=== PATIENT | male | born 1955 | race Caucasian/White ===

== ENCOUNTER 2021-05-13 06:30 | Day surgery (SDC) | payer MEDICARE, BC ==
[~2021-05-13] VITALS: Ht 170.2 cm; Wt 79.3 kg
--- NOTE | 2021-05-13 08:23 | NUR ---
05/13/21 0823 Irma Farooq 0816-PATIENT ARRIVED TO PACU ON 2L NC RR EVEN. PATIENT AWAKE DROWSY DENIES PAIN OR NAUSEA. LAYING LEFT LATERAL ABDOMEN SOFT ENCOURAGED TO PASS GAS. IVF INFUSING.
--- NOTE | 2021-05-13 10:46 | OR ---
[facility] [address], [place] [address] Signed DATE OF OPERATION: 05/13/2021 SURGEON: Steven Gates MD PREOPERATIVE DIAGNOSES: 1. Chronic proximal esophageal dysphagia. 2. Hiatal hernia. 3. History of esophagitis. 4. Barahona's esophagus. 5. History of gastritis. 6. Unremarkable colonoscopy in 2009. 7. Screening. POSTOPERATIVE DIAGNOSES: 1. Mild diffuse gastritis. 2. Small hiatal hernia. 3. Barahona's esophagus. 4. Distal esophagitis. 5. Poor bowel prep. 6. Minimal sigmoid diverticulosis. 7. Minimal to moderate internal hemorrhoids. PROCEDURES: 1. EGD with CLOtest and biopsies of the pyloric bulb, antrum, GE junction/distal esophagus. 2. Colonoscopy biopsy. ESTIMATED BLOOD LOSS: None. INDICATIONS: Clinton is a 65-year-old gentleman, asked to see me for repeat upper and lower endoscopy. He has had chronic proximal esophageal dysphagia for many years. Dr. Chris did both upper and lower endoscopy in 2009. He had a hiatal hernia with significant esophagitis and probable Barahona's esophagus. His colonoscopy was unremarkable. I repeated the upper endoscopy in 2011 and he does have Barahona's esophagus without dysplasia. At that time, no significant hiatal hernia noted. He had diffuse gastritis. His CLOtest was negative for H pylori. He tried two different proton pump inhibitors. He even went and saw his Ear, Nose, and Throat surgeon for evaluation. That seemed to go well. He now uses Zegerid [id number] which contains omeprazole and bicarbonate. If he stops Electronically Signed By: STEVEN GATES MD 05/13/21 1046 PATIENT NAME: CLINTON BARRETT OPERATIVE REPORT DATE OF : 55 REPORT #: [id number] PHYSICIAN: STEVEN GATES MD PCP: IVA ARREDONDO MD REPORT IS CONFIDENTIAL AND NOT TO BE RELEASED WITHOUT AUTHORIZATION [facility] [address], [place] [address] Signed the medicine, he said he is miserable. He has changed primary care providers. He is asked to see me for repeat upper and lower endoscopy. He has no lower GI complaints. There is no family history of colon cancer or polyps. He has had a recent cardiac evaluation, which was unremarkable. In the office, I gave Clinton pamphlets on both upper and lower endoscopy. He recalls the nature of the two tests. There is risk including, but not limited to gas bloating, crampy abdominal pain, bleeding, perforation requiring surgery, and missed diagnosis. We also discussed the need for IV conscious sedation. He has done well with Versed and fentanyl in the past. He had expressed understanding and wished to proceed. PROCEDURE NOTE: Clinton was taken into the endoscopy suite and placed in a supine semi-recumbent position. The posterior oropharynx was anesthetized with Hurricaine spray. A bite block was utilized for the case. He was given a total of 8 mg of Versed and 100 mcg of fentanyl to cover both the upper and lower endoscopy. The adult gastroscope had been introduced and advanced out into the duodenum without difficulty. Overall, the duodenum and pyloric channel were unremarkable. He does have mild diffuse erythematous changes throughout the stomach. We took biopsies from the pyloric channel as well as the antrum for pathologic review. An additional biopsy came out of the antrum for CLOtest. Upon retroflexion of the scope, he does have a small hiatal hernia. It was hard to measure with some of the liquid in the way. The scope was withdrawn up through the area of the GE junction, which is noted to be a little indurated. It appears to be just slightly strictured. The adult gastroscope had gone through with ever so slight resistance. He has rather significant inflammatory changes in his distal esophagus with healing granulation tissue. We took multiple circumferential biopsies of several layers for pathologic review. Again, the distal esophagus is a bit indurated. His middle and upper esophagus were unremarkable. The vocal cords were unremarkable. After this, the gas was suctioned out and the gastroscope removed. Clinton tolerated his upper endoscopy quite well. Clinton was rotated into the left lateral decubitus position. He was maintained on IV sedation with the Versed and fentanyl. A digital rectal exam was performed. Not much in the way of external hemorrhoids. He has good sphincter tone. Prostate is a little indurated, but otherwise not particularly enlarged. The adult colonoscope had been introduced and advanced all the way around into the cecum under direct visualization of the camera. Unfortunately, he had several areas of heavy particulate stool matter that we simply could not suction out. Consequently, his evaluation was less than optimal. We could identify the appendiceal orifice and the ileocecal valve. The scope was then slowly withdrawn. We did see a few small diverticula in the sigmoid colon. Rectum was unremarkable. Upon retroflexion of the scope, we can see minimal to moderate internal hemorrhoid columns. After this, the gas was suctioned out and the colonoscope removed. Clinton tolerated the procedure quite well. Electronically Signed By: STEVEN GATES MD 05/13/21 1046 PATIENT NAME: CLINTON BARRETT OPERATIVE REPORT DATE OF : 55 REPORT #: [id number] PHYSICIAN: STEVEN GATES MD PCP: IVA ARREDONDO MD REPORT IS CONFIDENTIAL AND NOT TO BE RELEASED WITHOUT AUTHORIZATION [address] [place] [address] Signed RECOMMENDATIONS: I will see Clinton back in my office in 7 to 14 days to review his results. He should strongly consider seeing a specialist about his distal esophagus. He really should repeat his colonoscopy with a double bowel prep. Steven Gates MD [facility]/MOD[facility] /[id number] cc: MD Steven Jones MD Copies: IVA ARREDONDO MD, ANDREW L MD ~ Electronically Signed By: STEVEN GATES MD 05/13/21 1046 PATIENT NAME: CLINTON BARRETT OPERATIVE REPORT DATE OF : 55 REPORT #: [id number] PHYSICIAN: STEVEN GATES MD PCP: IVA ARREDONDO MD REPORT IS CONFIDENTIAL AND NOT TO BE RELEASED WITHOUT AUTHORIZATION
--- NOTE | 2021-05-14 18:20 | PATH ---
[facility] [address], [place] [address] Signed SPECIMEN(S): A DUODENAL BIOPSY SPECIMEN(S): B ANTRUM/PYLORUS BIOPSY SPECIMEN(S): C GE JUNCTION BIOPSY SPECIMEN SOURCE: A. DUODENAL BIOPSY B. ANTRUM/PYLORUS BIOPSY C. GE JUNCTION BIOPSY CLINICAL HISTORY: Barahona's esophagus; GERD; hiatal hernia; dysphagia. Postop: Esophagitis; gastritis; hiatal hernia; Barahona's esophagus FINAL PATHOLOGIC DIAGNOSIS: A. Duodenum, biopsy: - Duodenal mucosa with changes suggestive of peptic duodenitis. - Negative for increased intraepithelial lymphocytes or villous blunting. - Negative for dysplasia or malignancy. B. Stomach, antrum/pylorus, biopsy: - Antral mucosa with chronic, inactive gastritis. - Negative for Helicobacter organisms on HE stain (see comment). - Negative for dysplasia or malignancy. C. Gastroesophageal junction, biopsy: - Intestinal metaplasia arising in a squamocolumnar junctional mucosa with ulceration and reflux esophagitis. - Squamous mucosa with reflux esophagitis. - Negative for dysplasia or malignancy. COMMENT: Regarding specimen B: An H. pylori immunohistochemical stain is pending and will be reported in an addendum. Regarding specimen C: The findings could be compatible with Barahona's esophagus in the correct clinical setting; endoscopic correlation is required. Part C of this case was reviewed in consultation with another member of our pathology staff. NAL:C2NR MICROSCOPIC EXAMINATION: Histologic sections of all submitted blocks are examined by light microscopy. These findings, together with the gross examination, support the pathologic diagnosis. PATIENT NAME: ANA M BARRETT PATHOLOGY DATE OF : 55 REPORT #: [id number] PHYSICIAN: TIARA MARR PCP: IVA ARREDONDO MD REPORT IS CONFIDENTIAL AND NOT TO BE RELEASED WITHOUT AUTHORIZATION [facility] [address] [facility] [place], [place] [address] Signed GROSS DESCRIPTION: Three specimens are received in three containers labeled with "LP". A. The specimen, labeled "LP, 1," and designated on the requisition "duodenal bulb biopsy," is received in formalin and consists of one fragment of pink-cabrera tissue (0.4 cm in greatest dimension). The specimen is submitted entirely in cassette A1. B. The specimen, labeled "LP, 2," and designated on the requisition "antrum/pylorus biopsy," is received in formalin and consists of one fragment of pink-cabrera tissue (0.5 cm in greatest dimension). The specimen is submitted entirely in cassette B1. C. The specimen, labeled "LP, 3," and designated on the requisition "GE junction biopsy," is received in formalin and consists of five fragments of pink-cabrera tissue (0.2 to 0.7 cm in greatest dimension). The specimen is submitted entirely in cassette C1. AC (under the direct supervision of a pathologist) The Gross Description was prepared using a voice recognition system. The report was reviewed for accuracy; however, sound-alike word errors, addition and/or deletions may occur. If there is any question about this report, please contact Client Services. PERFORMING LABORATORY: The technical component was performed by [employer], [address] [place] [id number] ([employer]: Gladys Fong MD; CLIA# [id number]). Professional interpretation was performed by [facility], [facility], [address] [address] (CLIA# [id number]). Diagnostician: Venita Mabry MD Pathologist Electronically Signed 05/14/2021 Copies: ~ PATIENT NAME: ANA M BARRETT PATHOLOGY DATE OF : 55 REPORT #: [id number] PHYSICIAN: TIARA MARR PCP: IVA ARREDONDO MD REPORT IS CONFIDENTIAL AND NOT TO BE RELEASED WITHOUT AUTHORIZATION
== END 2021-05-13 09:00 | disposition home or self-care (01) ==
LOC: DS 06:30
PROVIDERS: ATTEND Colon & Rectal Surgery
PROC: 0DB78ZX Excision of Stomach, Pylorus, Via Natural or Artificial Opening Endoscopic, Diagnostic (ICD-10-PCS; 2021-05-13)
PROC: 0DJD8ZZ Inspection of Lower Intestinal Tract, Via Natural or Artificial Opening Endoscopic (ICD-10-PCS; 2021-05-13)
PROC: 0DB98ZX Excision of Duodenum, Via Natural or Artificial Opening Endoscopic, Diagnostic (ICD-10-PCS; principal; 2021-05-13 07:30)
PROC: 0DB48ZX Excision of Esophagogastric Junction, Via Natural or Artificial Opening Endoscopic, Diagnostic (ICD-10-PCS; 2021-05-13 07:30)
DX: Z12.11 Encounter for screening for malignant neoplasm of colon (principal); K64.8 Other hemorrhoids; K57.30 Diverticulosis of large intestine without perforation or abscess without bleeding; K29.50 Unspecified chronic gastritis without bleeding; K44.9 Diaphragmatic hernia without obstruction or gangrene; K22.70 Barrett's esophagus without dysplasia; K21.00 Gastro-esophageal reflux disease with esophagitis, without bleeding; I47.1 Supraventricular tachycardia
CPT/HCPCS: 36415; 87077; 99153; G0500; J0690; J2250; J3010; J7121